=== PATIENT | female | born 1935 | race Caucasian/White ===

== ENCOUNTER 2017-10-06 13:48 | Emergency (ER) | payer MEDICARE, BC ==
[~2017-10-06] VITALS: Ht 5367.7 cm; Wt 59.1 kg
[~2017-10-06 13:48] MED LIST: ASPI-1264 PO
[2017-10-06] MEDS ORDERED: ondansetron 4mg rapidly disintigrating tab PO ONE (14:45)
[2017-10-06 16:17] LABS: CLARITY,URINE Cloudy (Clear); COLOR,URINE Yellow (Yellow); GLUCOSE, URINE Negative (Neg); KETONES,URINE 15 mg/dl (Neg); LEUKOCYTE ESTERASE ,URINE Large (Neg); NITRITES, URINE Negative (Neg); OCCULT BLOOD,URINE Negative (Neg); PROTEIN,URINE 30 mg/dl (Neg)
[2017-10-06 16:21] LABS: UA COLLECTION TYPE CLN CATCH MIDSTREAM
[2017-10-06 16:31] LABS: SQUAMOUS EPITHELIAL CELL,UR MANY /LPF (FEW); TRANSITIONAL EPI CELLS,URINE FEW /HPF
[2017-10-06 16:32] LABS: MUCUS STRANDS MODERATE /LPF (Neg); RENAL CELLS, URINE FEW /HPF; WBC,URINE 50-100 /HPF (0-4)
[2017-10-06 16:33] LABS: CAL OXALATE CRYSTALS 4+ /HPF (NEGATIVE)
[2017-10-06 16:34] LABS: BACTERIA,URINE 2+ /HPF (Neg); RBC,URINE 0-2 /HPF (0-2)
[2017-10-06 19:10] VITALS: BP 125/68
== END 2017-10-06 19:14 | disposition home or self-care (01) ==
LOC: ER 13:49
DX: M54.89 Other dorsalgia (principal); G89.29 Other chronic pain; R53.1 Weakness; R11.0 Nausea; F32.9 Major depressive disorder, single episode, unspecified; Z90.89 Acquired absence of other organs; Z90.710 Acquired absence of both cervix and uterus; Z88.6 Allergy status to analgesic agent
CPT/HCPCS: 36415; 71045; 80329; 81001; 99285; J7030